=== PATIENT | male | born 2000 | race Asian ===

== ENCOUNTER 2020-11-10 05:04 | Emergency (ER) | payer OTHER ==
[~2020-11-10] VITALS: Ht 188 cm; Wt 76.7 kg
[2020-11-10 06:25] VITALS: BP 124/82; TEMP 98
== END 2020-11-10 06:25 | disposition home or self-care (01) ==
LOC: ED 05:04
DX: A56.8 Sexually transmitted chlamydial infection of other sites (principal)
CPT/HCPCS: 87490; 87590; 96372; 99283; J0696